=== PATIENT | female | born 1970 | race African-American/Black ===

== ENCOUNTER 2019-02-04 21:38 | Emergency (ER) | payer OTHER ==
[~2019-02-04] VITALS: Ht 167.6 cm; Wt 113.9 kg
[2019-02-04 22:25] VITALS: Ht 167.6 cm; Wt 113.9 kg
[2019-02-04 23:08] VITALS: BP 151/98
== END 2019-02-04 23:08 | disposition home or self-care (01) ==
LOC: ED 21:38
DX: M26.602 Left temporomandibular joint disorder, unspecified (principal); I10 Essential (primary) hypertension; Z88.6 Allergy status to analgesic agent